=== PATIENT | female | born 1960 | race Native Hawaiian/Other Pacific Islander ===

== ENCOUNTER 2017-06-19 19:26 | Emergency (ER) | payer OTHER ==
[~2017-06-19] VITALS: Ht 149.9 cm; Wt 69.4 kg
[2017-06-19 19:33] VITALS: TEMP 98.1
[2017-06-19 20:01] LABS: PLATELET COUNT 352 K/uL (152-353)
[2017-06-19 20:10] LABS: POTASSIUM 2.5 mmol/L (3.6-5.2)
[2017-06-19 20:58] VITALS: BP 138/84
== END 2017-06-19 20:59 | disposition home or self-care (01) ==
LOC: ED 19:26
DX: G45.9 Transient cerebral ischemic attack, unspecified (principal)
CPT/HCPCS: 80053; 80307; 81000; 85027; 93005; 99284

== ENCOUNTER 2018-09-11 17:29 | Emergency (ER) | payer OTHER ==
[~2018-09-11] VITALS: Ht 149.9 cm; Wt 67.6 kg
[2018-09-11] MEDS ORDERED: POTASSIUM CHLOR8 MEQ PO (17:47)
[2018-09-11] MEDS ORDERED: FURO40TA93 PO (17:48)
[2018-09-11] MEDS ORDERED: PROM25TA52 PO (17:49)
[2018-09-11] MEDS ORDERED: BUPROPN HCL300 MG PO (17:50)
[2018-09-11] MEDS ORDERED: PAROXETINE30 MG PO (17:52)
[2018-09-11] MEDS ORDERED: CLOP75TA2 PO (17:52)
[2018-09-11 17:53] LABS: PLATELET COUNT 452 K/uL (152-353)
[2018-09-11] MEDS ORDERED: AMLODIPINE BESYLATE PO (17:54)
[2018-09-11] MEDS ORDERED: PANTOPRAZOLE 40MG TA PO (17:55)
[2018-09-11 18:01] LABS: POTASSIUM 3.3 mmol/L (3.6-5.2); SODIUM 137 mmol/L (136-145)
[2018-09-11 19:30] VITALS: BP 107/59; TEMP 97.7
== END 2018-09-11 20:46 | disposition home or self-care (01) ==
LOC: ED 17:29
PROVIDERS: Emergency Medicine
DX: N39.0 Urinary tract infection, site not specified (principal); R25.1 Tremor, unspecified
CPT/HCPCS: 80053; 81000; 82550; 82553; 84484; 85027; 87086; 87088; 93005; 96360; 99284

== ENCOUNTER 2019-01-01 19:28 | Emergency (ER) | payer OTHER ==
[~2019-01-01] VITALS: Ht 149.9 cm; Wt 64.0 kg
[~2019-01-01 19:28] MED LIST: AMLODIPINE BESYLATE PO; BUPROPN HCL300 MG PO; CLOP75TA2 PO; FURO40TA93 PO; PANTOPRAZOLE 40MG TA PO; PAROXETINE30 MG PO; POTASSIUM CHLOR8 MEQ PO; PROM25TA52 PO
[2019-01-01 20:05] LABS: PLATELET COUNT 401 K/uL (152-353)
[2019-01-01 20:09] LABS: POTASSIUM 3.5 mmol/L (3.6-5.2)
[2019-01-01 21:45] VITALS: BP 129/74; TEMP 97.9
== END 2019-01-01 21:45 | disposition home or self-care (01) ==
LOC: ED 19:28
PROVIDERS: Emergency Medicine
DX: M10.9 Gout, unspecified (principal)
CPT/HCPCS: 36415; 80053; 84550; 85027; 99283

== ENCOUNTER 2020-01-02 10:28 | Observation (INO) | payer OTHER ==
[2020-01-02] VITALS (10 sets, daily range): BP systolic 113–161; BP diastolic 59–92; TEMP 97.5–99.1; Ht 149.9 cm; Wt 75.8 kg
[~2020-01-02] VITALS: Ht 149.9 cm; Wt 75.8 kg
[2020-01-02 11:33] LABS: PLATELET COUNT 396 K/uL (152-353)
[2020-01-02 11:38] LABS: POTASSIUM 3.6 mmol/L (3.6-5.2)
[2020-01-02 11:56] LABS: PARTIAL THROMBOPLASTIN TIME 25.9 SECONDS (24.5-33.6)
[2020-01-02] MEDS ORDERED: ALLO100T22 PO (17:26)
[2020-01-02] MEDS ORDERED: GABA300C2 PO (17:30)
[2020-01-02] MEDS ORDERED: TRAZ100T PO (17:52)
[2020-01-02] MEDS ORDERED: ALBU0.5N13 INH (17:53)
[2020-01-02] MEDS ORDERED: NORCO 10/325***1 TAB PO (17:55)
[2020-01-02] MEDS ORDERED: ANORO ELLIPTA 61 AER INH (17:58)
[2020-01-02] MEDS ORDERED: AMLODIPINE BESYLATE PO (17:59)
[2020-01-02] MEDS ORDERED: BUDE1AER5 INH (17:59)
[2020-01-03] VITALS: BP 130/71; TEMP 97.7
[2020-01-03 04:00] VITALS: BP 127/70; TEMP 97.5
[2020-01-03 05:53] LABS: PLATELET COUNT 321 K/uL (152-353)
[2020-01-03 08:00] VITALS: BP 113/59; TEMP 97.9
[2020-01-03 12:00] VITALS: BP 128/65; TEMP 98.3
[2020-01-03] MEDS ORDERED: ATOR20TA2 PO (12:36)
== END 2020-01-03 15:20 | disposition home or self-care (01) ==
LOC: ED 10:28 → MED/SURG 15:13
PROVIDERS: Internal Medicine; ADMIT Family Medicine
DX: R53.1 Weakness (principal); I69.354 Hemiplegia and hemiparesis following cerebral infarction affecting left non-dominant side; I10 Essential (primary) hypertension; K21.9 Gastro-esophageal reflux disease without esophagitis; F41.8 Other specified anxiety disorders; N17.8 Other acute kidney failure; J44.9 Chronic obstructive pulmonary disease, unspecified; Z11.59 Encounter for screening for other viral diseases
CPT/HCPCS: 36415; 80048; 80053; 81000; 82550; 82553; 82570; 82728; 84300; 84443; 84484; 85027; 85379; 85610; 85730; 87635; 93005; 99220; 99283; G0378; U0003

== ENCOUNTER 2021-01-05 18:10 | Outpatient (CLI) | payer OTHER ==
[~2021-01-05 18:10] MED LIST changes: +ALBU0.5N13 INH; +ALLO100T22 PO; +ANORO ELLIPTA 61 AER INH; +ATOR20TA2 PO; +BUDE1AER5 INH; +GABA300C2 PO; +NORCO 10/325***1 TAB PO; +TRAZ100T PO
== END 2021-01-05 22:33 | disposition home or self-care (01) ==
LOC: RAD 18:10
PROVIDERS: ATTEND Internal Medicine
DX: Z00.8 Encounter for other general examination (principal)

== ENCOUNTER 2022-08-13 15:16 | Emergency (ER) | payer OTHER ==
[~2022-08-13] VITALS: Ht 149.9 cm; Wt 71.2 kg
[2022-08-13 15:23] VITALS: TEMP 98
[2022-08-13 16:09] LABS: PLATELET COUNT 374 K/uL (152-353)
[2022-08-13 16:21] LABS: POTASSIUM 3.4 mmol/L (3.6-5.2)
[2022-08-13 16:25] LABS: PARTIAL THROMBOPLASTIN TIME 31.4 SECONDS (23.9-36.7)
[2022-08-13 19:30] VITALS: BP 149/17
== END 2022-08-13 19:40 | disposition still patient (30) ==
LOC: ED 15:16
PROVIDERS: Family Medicine
DX: R11.10 Vomiting, unspecified (principal); E86.0 Dehydration; A41.9 Sepsis, unspecified organism; I10 Essential (primary) hypertension; J44.1 Chronic obstructive pulmonary disease with (acute) exacerbation
CPT/HCPCS: 36415; 36600; 80053; 80307; 81002; 82550; 82805; 83605; 83880; 84484; 85027; 85379; 85610; 85730; 87040; 93005; 94664; 96360; 99284

== ENCOUNTER 2022-08-23 14:23 | Emergency (ER) | payer OTHER ==
[~2022-08-23] VITALS: Ht 149.9 cm; Wt 68.0 kg
[2022-08-23 14:54] LABS: PLATELET COUNT 424 K/uL (152-353)
[2022-08-23 15:01] LABS: POTASSIUM 3.1 mmol/L (3.6-5.2)
[2022-08-23 16:55] VITALS: BP 121/67; TEMP 98.1
== END 2022-08-23 17:11 | disposition short-term general hospital (02) ==
LOC: ED 14:23
PROVIDERS: Family Medicine
DX: I63.9 Cerebral infarction, unspecified (principal); G45.9 Transient cerebral ischemic attack, unspecified; J44.1 Chronic obstructive pulmonary disease with (acute) exacerbation
CPT/HCPCS: 36415; 80053; 83880; 84484; 85027; 93005; 94664; 96374; 99284; J2930